=== PATIENT | female | born 1940 | race Caucasian/White ===

== ENCOUNTER → 2020-07-04 | Outpatient (CLI) | payer OTHER | LOC: KOH-I 14:42 | DX: T71.9XXA Asphyxiation due to unspecified cause, initial encounter (principal) | CPT/HCPCS: 71046 ==

== ENCOUNTER → 2020-07-21 | Outpatient (CLI) | payer OTHER | LOC: KOH-I 15:05 | DX: R13.10 Dysphagia, unspecified (principal); E04.2 Nontoxic multinodular goiter | CPT/HCPCS: 76536 ==

== ENCOUNTER → 2021-10-29 | Outpatient (CLI) | payer OTHER ==
[~2021-10-29] VITALS: Ht 160 cm; Wt 72.6 kg
== END ==
LOC: OPSV 10-28 15:00
DX: M85.80 Other specified disorders of bone density and structure, unspecified site (principal)
CPT/HCPCS: 96372